=== PATIENT | male | born 1960 | race Caucasian/White ===

== ENCOUNTER 2022-11-24 22:49 | Outpatient (CLI) | payer BC, SELFPAY ==
--- NOTE | 2022-11-24 14:45 | DI.RAD_ITS ---
Exam(s) XR KNEE RT 3V AP,LAT,FRANCISCO EXAM: XR KNEE RT 3V AP,LAT,FRANCISCO CLINICAL HISTORY: evaluate pathology, RT KNEE PAIN, M25.561. TECHNIQUE: 2D digital imaging was performed of the right knee. Three views obtained. AP, lateral an d PA tunnel views were obtained. COMPARISON: No priors for comparison. FINDINGS: BONES: No acute fracture is present. No bony destructive lesion is seen. JOINTS: The knee is normally aligned. There is a small joint effusion. There is chondrocalcinosis in the femoral tibial joint. SOFT TISSUE: Normal. IMPRESSION: Chondrocalcinosis which can be seen with CPPD arthropathy. DATA REPOSITORY: RADIATION DOSE DELIVERED:
== END 2022-11-24 23:09 ==
LOC: DI 22:51
PROVIDERS: PCP Nurse Practitioner Family; Visit Provider Nurse Practitioner Family
DX: M25.561 Pain in right knee (principal); M11.261 Other chondrocalcinosis, right knee
CPT/HCPCS: 73562

== ENCOUNTER 2023-11-03 11:20 | Outpatient (CLI) | payer MEDICAID, SELFPAY ==
[2023-11-03 12:56] LABS: Calculated LDL 207 mg/dL (<100); Cholesterol 286 mg/dL (<200); HDL Cholesterol 52 mg/dL (40-60); Triglyceride 138 mg/dL (<150)
== END 2023-11-03 11:21 | disposition home or self-care (01) ==
LOC: LOS 11:21
PROVIDERS: PCP Nurse Practitioner Family; Visit Provider Nurse Practitioner Family
DX: I25.10 Atherosclerotic heart disease of native coronary artery without angina pectoris (principal)
CPT/HCPCS: 36415; 80061

== ENCOUNTER 2024-02-12 09:22 | Outpatient (REF) | payer MEDICAID, SELFPAY ==
[2024-02-12 22:15] LABS: ALT 49 U/L (16-63); AST 26 U/L (15-37); Alkaline Phosphatase 100 U/L (46-116); Anion Gap 7.8 mmol/L (3-11); BUN 19 mg/dL (7-18); Bilirubin, Total 0.99 mg/dL (0.2-1.0); CO2 30.2 mmol/L (21.0-32.0); Calcium 9.8 mg/dL (8.5-10.1); Calculated LDL 82 mg/dL (<100); Chloride 106 mmol/L (98-107); Cholesterol 188 mg/dL (<200); Estimated GFR 84.05 (mL/min/1.73m2); Glucose 98 mg/dL (74-106); HDL Cholesterol 49 mg/dL (40-60); Potassium 4.3 mmol/L (3.5-5.1); Sodium 144 mmol/L (136-145); Total Protein 7.2 g/dL (6.4-8.2); Triglyceride 289 mg/dL (<150)
[2024-02-15 12:46] LABS: PSA, Screening 0.4 ng/mL (<=4.5)
== END 2024-02-12 09:23 ==
LOC: LBN 09:22
PROVIDERS: PCP Nurse Practitioner Family; Visit Provider Nurse Practitioner Family
DX: Z12.5 Encounter for screening for malignant neoplasm of prostate (principal); I25.10 Atherosclerotic heart disease of native coronary artery without angina pectoris
CPT/HCPCS: 80053; 80061; 84153

== ENCOUNTER 2024-05-06 06:19 | Day surgery (SDC) | payer MEDICAID, SELFPAY ==
--- NOTE | 2024-05-05 21:39 | COLE_ITS ---
Date of service: 05/06/24 Time of Service: 15:28 Colonoscopy Report Date of procedure: 05/06/24 Pre-op diagnosis general: CRC screening Post-op diagnosis procedure note: other (External hemorrhoids/diverticula/rectal polyps) Surgeon: Milagros Lofton Anesthesia Type: General:No Airway Estimated blood loss (mL): 2 Pathology: other Complications: None Disposition: same day Prep: Miralax/Dulcolax Retraction Time: 17 Procedure Description: After informed consent was obtained, explaining risks of the procedure, including but not limits to: bleeding, infections, complications of anesthesia, perforations (which may require antibiotics and /or surgery and stay in the hospital), and abdominal pain/cramping. The patient was taken to the procedure room and placed in a left decubitous position. Monitors were applied and a time out was done. The patients name, date of , procedure, allergies to medications and metal in their body was reviewed. The patient was then sedated. Once sedated and comfortable a rectal exam was done. External exam shows external hemorrhoids with no acute inflammation or thrombosis. Internal exam revealed a normal sphincter tone and no palpable masses. The prostate no masses palpated The previously lubricated Olympus scope was then introduced (see RN notes for scope number) and retrofelexed. No internal hemorrhoids were identified. The scope was then advanced to the cecum without difficulty. The TI and appendiceal orifice were identified. The scope was then slowly retracted over minutes back into the rectum. Polyps: A flat, .5cm polyp was found in the rectum x4. These are removed with a cold biting forceps. All of the specimen was retrieved. This will be sent to pathology. There is no bleeding noted from the polypectomy site. Diverticula: pt had a moderate amount of small mouthed diverticula in the sigmoid colon. There were no signs of active bleeding or infection. The mucosa is pink and healthy w/ a normal vascular pattern. The scope was removed, and the patient was woken up and taken back to Same day surgery in stable condition. The patient tolerated the procedure well and there were no immediate complications. Follow up: The patient should follow up path pd, unless they develop changes in bowel habits or other new gastrointestinal complaints. [place] Bowel Prep [place] Bowel Prep Right Colon: 3 Left Colon: 3 Transverse Colon: 3 Total Score: 9
--- NOTE | 2024-05-05 21:40 | PDOC.DSDIS_ITS ---
Date of service: 05/06/24 Discharge Plan Disposition Patient Disposition: Home Condition: Good Discharge Details Reason For Visit: colon scope Attending Provider: Milagros Lofton Primary Care Provider: Rony Luna Home Meds and New Rx's Prescriptions: Continued aspirin 81 mg tablet,delayed release (DR/EC) 81 mg PO DAILY Qty: 90 4RF cholecalciferol (vitamin D3) 75 mcg (3,000 unit) tablet 3,000 unit PO DAILY Qty: 90 4RF nitroglycerin [Nitrostat] 0.4 mg tablet, sublingual 0.4 mg Sublingual PRN Qty: 25 4RF atorvastatin 80 mg tablet 80 mg PO DAILY Qty: 90 4RF Discontinued bisacodyl [Dulcolax (bisacodyl)] 5 mg tablet,delayed release (DR/EC) 5 mg PO ONCE Qty: 4 0RF Rx Instructions: Take per colonoscopy instructions provided by ordering providers office polyethylene glycol 3350 17 gram/dose powder 17 g PO ONCE Qty: 238 0RF Rx Instructions: Take per colonoscopy instructions provided by ordering providers office Discharge Instructions Additional Instructions: DSU Colonoscopy Post- Op Instructions Instructions for Everyone who is given Anesthesia: For your safety, please do the following for the next twenty-four (24) hours: *Do Not operate a motor vehicle (car, truck, motorcycle, etc.) *Do Not drink alcoholic beverages or use any recreational drugs for the first 24 hours or while taking pain medications. The medications in your body may have a reaction that can be dangerous. *Do Not make any important decisions or sign any important papers. Findings:Polyps Diverticula-make sure you are moving your bowels on a regular basis and not s training to go to the bathroom. If you find you are having problems with constipation or straining then we do recommend you start a fiber supplement such as Metamucil. Follow up: My office will send you a letter in 3 to 4 weeks time with the results of the pathology and when we want you to repeat colonoscopy, most likely 5 years tiime. -Resume aspirin on Thursday. Because the number of polyps we took out in the rectum the first time he move your bowels you may see a small amount of blood. 1. No lifting over 20 pounds or strenuous activity for the first 24 hours after your procedure. After 24 hours there are no restrictions on your activity but you may feel fatigued for a few days. 2. After you arrive home you may have a light meal and return to your normal diet as you can tolerate it without feeling sick to your stomach. 3. You may have a bloated, gaseous feeling in your belly (abdomen) after a colonoscopy. Passing gas and belching will help. Walking or lying down on your left side with your knees flexed may relieve the discomfort. Call the office at [phone] (Office) or [phone] (Hospital) right away if you notice any of the following: a.Vomiting of blood or ?coffee ground stools?. b.Rectal bleeding 1Tbsp, blood clots or continuous bleeding. c.Severe belly (abdominal) pain. d.A hard distended belly (abdomen) and an inability to pass gas. 4. Please don?t expect to have a normal BM (bowel movement) for 2-3 days after your procedure. 5. If there are questions regarding the findings of your procedure, please contact your doctor 6. If you are unable to contact your doctor with a problem, contact the hospital at [phone]. 7. Continue all your regular medications unless directed otherwise. I understand the above instructions and have no questions. Signature of Patient or Adult Escort Name of Responsible Adult Escort Signature of Nurse Date/Time Stand Alone Forms: Anesthesia Discharge Inst., Joleen Prasad (DSU) Activity:: see above Diet:: see above Discharge Orders Discharge Orders: Discharge Order (Routine); Ordered 05/06/24 Ordered By: Milagros Lofton DS: Diagnosis Discharge Diagnosis (1) ASCVD (arteriosclerotic cardiovascular disease): Status: Acute (2) Nonulcer dyspepsia: Status: Acute (3) Non-alcoholic fatty liver disease: Status: Acute (4) Diverticula of colon: Status: Acute (5) Adenomatous polyps: Status: Acute Asessment and Plan: The patient is seen and examined after their colonoscopy.? The patient has been able to pass gas.? They are not having abdominal pain.? They have been able to tolerate liquids and a snack.? They do not have any nausea or vomiting.? They are not having any chest pain or shortness of breath.??? They are not having any rectal bleeding. Their vital signs have been stable-see nursing notes. We discussed findings during their colonoscopy, and any biopsies that were done/polyps that were removed. The patient will be sent a letter with any biopsy results, and when to repeat the colonoscopy.-see discharge instructions. Patient was given explicit instructions to follow-up regarding colonoscopy-refer to discharge instructions.? We reviewed resumption of medications. Patient verbalized understanding and discharged in stable and satisfactory condition- See nursing notes.
--- OUTSIDE RECORDS SUMMARY | 2024-05-06 06:20 | XMS_ITS | Referral Summary ---
Author Organization [facility] Address [address] [place] [address] Care Team Providers Care Creative Writing English Professor Name Role Phone Unavailable Primary Care Provider Unavailabl e Encounters Date Type Department Care Team Description 02/13/2024 Lab Requisition [facility] Pathology & Laboratory Medicine - [facility] [address] [place] [address] Outr Resulting Lab, Provider from Last 3 Months Social History Tobacco Use Types Packs/Day Years Used Date Smoking Tobacco: Never Assessed Sex and Gender Information Value Date Recorded Sex Assigned at Not on file Legal Sex Male 19:49 EDT Gender Identity Not on file Sexual Orientation Not on file Plan of Treatment Not on file Procedures Procedure Name Priority Date/Time Associated Diagnosis Comments PSA TOTAL, DIAGNOSTIC Routine 02/12/2024 11:45 EDT from Last 3 Months Results * PSA TOTAL, DIAGNOSTIC (02/12/2024 11:45 EDT) PSA 0.4 <=4.5 ng/mL 02/15/2024 12:42 EDT [facility] Blood VENOUS BLOOD / Unknown 02/12/2024 11:45 EDT 02/13/2024 22:07 EDT Narrative [facility] - 02/15/2024 12:42 EDT NOTE: Serum PSA concentration should not be interpreted as absolute evidence for the presence or absence of malignant disease. Assayed on Siemens ADVIA Centaur XPT using chemiluminescent technology.??Values obtained by using different assay methods cannot be used interchangeably. us Provider Outr Resulting Lab CHEMISTRY & BLOOD GA S ORDERABLES Final Result [facility] [address] [place] [address] from Last 3 Months
--- OUTSIDE RECORDS SUMMARY | 2024-05-06 06:20 | XMS_ITS | Clinical Summary ---
Author Organization [facility] Address [address] [place] [address] Care Team Providers Care Mink Farmer Name Role Phone Unavailable Primary Care Provider Unavailabl e Encounters Date Type Department Care Team Description 02/13/2024 Lab Requisition [facility] Pathology & Laboratory Medicine - [address] [address] Outr Resulting Lab, Provider from Last 3 Months Social History Tobacco Use Types Packs/Day Years Used Date Smoking Tobacco: Never Assessed Sex and Gender Information Value Date Recorded Sex Assigned at Not on file Legal Sex Male 19:49 EDT Gender Identity Not on file Sexual Orientation Not on file Plan of Treatment Health Maintenance Due Date Last Done Comments Hepatitis C Screen 1960 COVID-19 Vaccine ( season) 2024 RSV Immunization ( o r 60+ Years) (1 - 1-dose 75+ series) 08/12/2034 Procedures Procedure Name Priority Date/Time Associated Diagnosis Comments PSA TOTAL, DIAGNOSTIC Routine 02/12/2024 11:45 EDT from Last 3 Months Results * PSA TOTAL, DIAGNOSTIC (02/12/2024 11:45 EDT) PSA 0.4 <=4.5 ng/mL 02/15/2024 12:42 EDT [facility] Blood VENOUS BLOOD / Unknown 02/12/2024 11:45 EDT 02/13/2024 22:07 EDT Narrative [facility] - 02/15/2024 12:42 EDT NOTE: Serum PSA concentration should not be interpreted as absolute evidence for the presence or absence of malignant disease. Assayed on Siemens ADVIA BioConsortiaaur XPT using chemiluminescent technology.??Values obtained by using different assay methods cannot be used interchangeably. us Provider Outr Resulting Lab CHEMISTRY & BLOOD GA S ORDERABLES Final Result [facility] [address] [place] [address] from Last 3 Months
--- OUTSIDE RECORDS SUMMARY | 2024-05-06 06:20 | XMS_ITS | Encounter Summary ---
Author Organization [facility] Address [address] [place] [address] Care Team Providers Care Orderly Name Role Phone Unavailable Primary Care Provider Unavailabl e Encounter Details Date Type Department Care Team (Late st Contact Info) Description 02/13/[address] [facility] Pathology & Laboratory Medicine - [facility] [address] [place] [address] Outr Resulting Lab, Provider Social History Tobacco Use Types Packs/Day Years Used Date Smoking Tobacco: Never Assessed Sex and Gender Information Value Date Recorded Sex Assigned at Not on file Legal Sex Male 19:49 EDT Gender Identity Not on file Sexual Orientation Not on file documented as of this encounter Plan of Treatment Not on file documented as of this encounter Procedures Procedure Name Priority Date/Time Associated Diagnosis Comments PSA TOTAL, DIAGNOSTIC Routine 02/12/2024 11:45 EDT documented in this encounter Results * PSA TOTAL, DIAGNOSTIC (02/12/2024 11:45 EDT) PSA 0.4 <=4.5 ng/mL 02/15/2024 12:42 EDT [facility] Blood VENOUS BLOOD / Unknown 02/12/2024 11:45 EDT 02/13/2024 22:07 EDT Narrative [facility] - 02/15/2024 12:42 EDT NOTE: Serum PSA concentration should not be interpreted as absolute evidence for the presence or absence of malignant disease. Assayed on Siemens ADVIA Centaur XPT using chemiluminescent technology.??Values obtained by using different assay methods cannot be used interchangeably. us Provider Outr Resulting Lab CHEMISTRY & BLOOD GA S ORDERABLES Final Result [facility] [address] [place] [address] documented in this encounter Visit Diagnoses Not on filedocumented in this encounter
[2024-05-06 06:32] VITALS: BP 121/81; PULSE 77; RESP 16; TEMP 36.4; O2SAT 96
[2024-05-06] MEDS: Lactated Ringers 1,000 ML 80 ML IV (06:58)
--- NOTE | 2024-05-06 07:17 | W.ANESPRE ---
General Info Date of Service Date Performed: 05/06/24 Height: 5 ft 7 in Weight: 82.9 kg Body Mass Index (BMI): 28.6 Surgical Procedure: Operation Date: 05/06/24 07:35 Proposed Procedure Side Surgeon p Colonoscopy Milagros Lofton, DO Actual Procedure Side Surgeon p Colonoscopy Not Applicable Milagros Lofton, DO Pre-Op Diagnosis Post-Op Diagnosis colon scope Meds Allergies and Home Medications Allergies Allergy/AdvReac Type Severity Reaction Status Date / Time No Known Allergies Allergy Verified 05/06/24 06:34 Home Medication ?Medication ?Instructions ?Recorded aspirin 81 mg tablet,delayed 81 mg PO DAILY #90 tabs 01/06/23 release cholecalciferol (vitamin D3) 75 3,000 unit PO DAILY #90 tabs 01/06/23 mcg (3,000 unit) tablet nitroglycerin 0.4 mg sublingual 0.4 mg sublingual PRN #25 tabs 01/06/23 tablet (Nitrostat) atorvastatin 80 mg tablet 80 mg PO DAILY #90 tab-caps 01/07/24 Current Visit Medications: Current Medications Generic Name Dose Route Start Last Admin Trade Name Sergioq PRN Reason Stop Dose Admin Hyoscyamine Sulfate 0.125 mg 05/06/24 09:11 Hyoscyamine 0.125 Mg Sl/Oral/Chew SL 06/05/24 09:10 DIRECTED PRN Ringer's Solution 1,000 mls @ 80 mls/hr 05/06/24 06:45 05/06/24 06:58 IV 06/05/24 06:44 80 mls/hr INFUSION INDER Administration IV Miscellaneous Supplies 1 each 05/06/24 06:00 Iv Access IV 05/06/24 23:59 DIRECTED INDER Ondansetron HCl 4 mg 05/06/24 09:11 Ondansetron 4 Mg/2 Ml Vial IVP 06/05/24 09:10 Q4H PRN PRN Nausea / Vomiting Sodium Chloride 0 ml 05/06/24 06:00 Normal Saline Flush 10 Ml Syr IV 05/06/24 23:59 PRN PRN Sodium Chloride 0 ml 05/06/24 06:00 Normal Saline 10 Ml Vial IJ 05/06/24 23:59 DIRECTED PRN Sterile Water 0 ml 05/06/24 06:00 Water,Injection,Sterile 10 Ml Vial IJ 05/06/24 23:59 DIRECTED PRN [facility] Active Problems Active Problems: Problem Status Onset Code Atrophy of quadriceps femoris muscle of right thigh Acute M62.551 Skin lesions Acute L98.9 Internal derangement of right knee Acute M23.91 Chondromalacia, right knee Acute M94.261 ASCVD (arteriosclerotic cardiovascular disease) Acute 01/08/12 I25.10 Hyperlipidemia Acute 01/08/12 E78.5 Keratoconus Acute 08/03/12 H18.609 Non-alcoholic fatty liver disease Acute 06/25/12 K76.0 Nonulcer dyspepsia Acute K30 Medical History Medical History Depressive disorder (01/08/12) Strep pharyngitis Helicobacter pylori gastrointestinal tract infection (02/01/13) Family history of prostate cancer Surgical History Surgical History History of intravascular stent placement Status post cardiac catheterization History of coronary angioplasty Stent placement (~12/2011) NON- STEMI STENT PROCEDURES OPEN CORONRY ANGIOPLASTY, 01/01/12 [facility] LEFT HEART CARDIAC CATH, 12/31/11 [facility] ([facility] LEFT VENTRICULOGRAPHY; CORONARY OPTICAL COHERANCE TOMOGRAPHY; CORONARY STENT INSERTION; VASCULAR CLOSURE DEVICE DEPLOYMENT; ACCESS SITE ANGIOGRAPHY Tobacco Smoking/Tobacco Use Status: Never Passive smoking exposure: Yes Second hand exposure: Yes Alcohol Alcohol Intake: current Alcohol intake frequency: holidays/special occasions only Alcohol type: beer Substance Use Substance use: Never Substance use type: does not use Vital Signs and Lab Results Vital Signs Most Recent Vital Signs in EMR: Most Recent Vital Signs Temp Pulse Resp BP Pulse Ox 36.4 C L 77 16 121/81 96 05/06/24 06:32 05/06/24 06:32 05/06/24 06:32 05/06/24 06:32 05/06/24 06:32 Lab Results Blood Type / Crossmatch: No Data to Display Complete Blood Count: No Data to Display Complete Metabolic Panel: No Data to Display Liver Function Panel: No Data to Display Coagulation Panel: No Data to Display Cardiac Panel: No Data to Display Arterial Blood Gas: No Data to Display Venous Blood Gas: No Data to Display Pancreas Panel: No Data to Display Thyroid Panel: No Data to Display Infectious Disease: No Data to Display Blood Cultures: No Data to Display Toxicology Panel: No Data to Display Anesthesia Assessment and Plan Anesthesia History Personal History: No History of Anesthesia Complications Family History: No Family History of Anesthesia Complications Exercise Tolerance Exercise Tolerance: Metabolic Equivalents>4 Pertinent Negatives Pertinent Negatives: No Symptoms of GERD, No Major Cardiovascular Symptoms or Complaints, No Major Pulmonary Symptoms or Complaints and No History of CVA/TIA Cardiac & Pulmonary Exam Cardiac Exam: Normal S1/S2 Heart Sounds Pulmonary Exam: Clear Bilateral Breath Sounds Implantable Cardiac Device Does patient have a Pacemaker or an ICD?: No Airway Exam Known Difficult Airway: No Mallampati Class: 2 Mouth Opening: Normal (> 3cm) Thyromental Distance: Greater than 3 cm Facial Hair: Full Mak Neck Range of Motion: Full ROM Neck Circumference: Normal Teeth Condition: Normal Dentition ASA Classification ASA Score: ASA 2 Emergency Case?: No NPO Status NPO Status: NPO Clears >2 hours, Solids >8 hours Anesthesia Plan Resuscitation Status: Full Code Anesthesia Technique: General Anesthesia Airway Planned: Natural Airway Monitors Used: Standard Monitors Preoperative Comments:: 63 y/o male with history of CAD (s/p PCI to mid LAD in 2011) and HLD presents for colonoscopy screening. His last screening was in 2009 and was unremarkable.
[2024-05-06 07:21] VITALS: BMI 28.6
--- NOTE | 2024-05-06 07:59 | BOWEL_PTH ---
PATIENT: Rodney Baker LOC: [facility] U#:[id number] AGE/SX: 63/M ROOM: RE05/06/[address]: Milagros Lofton : 1960 BED: DIS: 05/06/2024 SPEC #: [id number] RECD: 05/06/24 12:55 STATUS: ALVARADO REQ #: [id number] EARNEST: 05/06/24 07:[address]: Milagros Lofton DEPT: Surgical Specimen RECD BY: Geri Benedict ENTERED: 05/06/24 12:56 SP TYPE: Bowel OTHR DR: Rony Danielle, DAVE Tissues: 1 - BIOPSY BOWEL Procedures: GROSS AND MICRO LEVEL 4 Comments: [id number]
[2024-05-06 08:17] VITALS: BP 116/79; PULSE 82; RESP 16; TEMP 36.6; O2SAT 95
--- NOTE | 2024-05-06 08:26 | W.ANESPOSTOP ---
Postoperative Evaluation Date, Time and Location Date Performed: 05/06/24 Time Performed: 08:21 Patient Location: Day Surgery Unit Vital Signs Most Recent Imported Vital Signs: Most Recent Vital Signs Temp Pulse Resp BP Pulse Ox 36.6 C 82 16 116/79 95 05/06/24 08:17 05/06/24 08:17 05/06/24 08:17 05/06/24 08:17 05/06/24 08:17 Pain Score Most Recent Pain Score: Most Recent Pain Score Pain Level 0 05/06/24 08:17 Assessment Mental Status: Awake (Alert & Oriented to Patient Baseline) Airway and Respiratory Function: Patent airway with normal (patient baseline) respiratory exam Cardiovascular Function: Hemodynamically Stable Hydration Status: Adequately Hydrated Nausea & Vomiting: No Nausea or Vomiting Pain: Pt. Denies Any Pain Peripheral Nerve Block: Patient did not receive a nerve block
[2024-05-06 08:40] VITALS: BP 111/76; PULSE 72; RESP 16; TEMP 36.6; O2SAT 97
== END 2024-05-06 09:12 | disposition home or self-care (01) ==
LOC: SUR 06:19
PROVIDERS: PCP Nurse Practitioner Family; Visit Provider Surgery
PROC: 0DJD8ZZ Inspection of Lower Intestinal Tract, Via Natural or Artificial Opening Endoscopic (ICD-10-PCS; CPT 45378; principal; 2024-05-06 07:30)
DX: Z12.11 Encounter for screening for malignant neoplasm of colon; I25.10 Atherosclerotic heart disease of native coronary artery without angina pectoris; K64.8 Other hemorrhoids; K57.30 Diverticulosis of large intestine without perforation or abscess without bleeding; K62.1 Rectal polyp
CPT/HCPCS: 45380; 88305; J2003; J2704

== ENCOUNTER 2025-04-06 09:42 | Outpatient (CLI) | payer MEDICARE, SELFPAY ==
[2025-04-06 17:03] LABS: Cholesterol 172 mg/dL (<200); HDL Cholesterol 43 mg/dL (>40)
== END 2025-04-06 09:43 | disposition home or self-care (01) ==
PROVIDERS: PCP Nurse Practitioner Family; Visit Provider Nurse Practitioner Family
DX: E78.5 Hyperlipidemia, unspecified (principal)
CPT/HCPCS: 36415; 80061

== ENCOUNTER → 2025-04-06 10:34 | Outpatient (CLI) | payer MEDICARE, SELFPAY ==
--- NOTE | 2025-04-06 10:30 | DI.RAD_ITS ---
Exam(s) XR KNEE LT 3V AP,LAT,FRANCISCO EXAM: XR KNEE LT 3V AP,LAT,FRANCISCO CLINICAL HISTORY: ski injury, LT KNEE PAIN, M25.562. TECHNIQUE: 2D digital imaging was performed. COMPARISON: CR XR KNEE RT 3V AP,LAT,FRANCISCO from 11/24/2022 FINDINGS: 3 views No evidence of acute fracture. There appears to be a slight increased amount of joint fluid. There is no degenerative joint space narrowing but there is chondrocalcinosis evident in both medial lateral compartments. Bone density is normal. There are no osseous lesions. IMPRESSION: No acute osseous findings. Chondrocalcinosis in the joint space incidentally noted. Small amount of increased joint fluid. If clinically indicated follow- up MRI can be performed for added sensitivity. DATA REPOSITORY: RADIATION DOSE DELIVERED:
== END ==
PROVIDERS: PCP Nurse Practitioner Family; Visit Provider Nurse Practitioner Family
DX: M25.562 Pain in left knee (principal); M11.262 Other chondrocalcinosis, left knee
CPT/HCPCS: 73562